=== PATIENT | female | born 1970 | race Caucasian/White ===

== ENCOUNTER 2017-12-26 21:31 | Emergency (ER) | payer MEDICAID ==
[2017-12-26] MEDS ORDERED: IBUPROFEN 600 MG TAB PO (22:30)
[2017-12-26] MEDS: AMOXICILLIN 500 MG CAP PO (22:34)
[2017-12-26] MEDS: KETOROLAC 30 MG INJ IM (22:34)
== END 2017-12-26 22:43 | disposition home or self-care (01) ==
LOC: FTE 21:31
DX: H66.91 Otitis media, unspecified, right ear (principal); I10 Essential (primary) hypertension
CPT/HCPCS: 81025; 96372; 99284-25